=== PATIENT | female | born 1970 | race Caucasian/White ===

== ENCOUNTER 2023-04-06 11:59 | Outpatient (RCR) | payer OTHER, SELFPAY | END 2023-04-06 23:59 | disposition home or self-care (01) | LOC: RPT 11:59 | PROVIDERS: ATTENDING PHYSICIAN Psychiatry & Neurology Neurology; PRIMARYCARE PHYSICIAN Family Medicine | DX: M79.18 Myalgia, other site (principal); M62.838 Other muscle spasm; M62.81 Muscle weakness (generalized); Z73.6 Limitation of activities due to disability; R27.8 Other lack of coordination | CPT/HCPCS: 97110; 97162; 97530 ==

== ENCOUNTER 2023-05-08 10:59 | Outpatient (RCR) | payer OTHER, SELFPAY | END 2023-05-08 23:59 | disposition home or self-care (01) | LOC: RPT 10:59 | PROVIDERS: ATTENDING PHYSICIAN Psychiatry & Neurology Neurology; PRIMARYCARE PHYSICIAN Family Medicine | DX: M62.838 Other muscle spasm (principal); M62.81 Muscle weakness (generalized); R27.8 Other lack of coordination; Z73.6 Limitation of activities due to disability | CPT/HCPCS: 97110; 97530 ==

== ENCOUNTER 2023-06-08 10:02 | Outpatient (RCR) | payer OTHER, SELFPAY | END 2023-06-08 23:59 | disposition home or self-care (01) | LOC: RPT 10:02 | PROVIDERS: ATTENDING PHYSICIAN Psychiatry & Neurology Neurology; PRIMARYCARE PHYSICIAN Family Medicine | DX: M62.838 Other muscle spasm (principal); M62.81 Muscle weakness (generalized); R27.8 Other lack of coordination; Z73.6 Limitation of activities due to disability | CPT/HCPCS: 97110; 97530 ==

== ENCOUNTER 2023-07-06 10:00 | Outpatient (RCR) | payer OTHER, SELFPAY | END 2023-07-06 23:59 | disposition home or self-care (01) | LOC: RPT 10:00 | PROVIDERS: ATTENDING PHYSICIAN Psychiatry & Neurology Neurology; PRIMARYCARE PHYSICIAN Family Medicine | DX: M62.838 Other muscle spasm (principal); R27.8 Other lack of coordination; M62.81 Muscle weakness (generalized) | CPT/HCPCS: 97110; 97530 ==

== ENCOUNTER 2023-08-11 11:01 | Outpatient (RCR) | payer OTHER, SELFPAY | END 2023-08-11 23:59 | disposition home or self-care (01) | LOC: RPT 11:01 | PROVIDERS: ATTENDING PHYSICIAN Psychiatry & Neurology Neurology; PRIMARYCARE PHYSICIAN Family Medicine | DX: R27.8 Other lack of coordination (principal); M62.81 Muscle weakness (generalized); M79.18 Myalgia, other site; Z73.6 Limitation of activities due to disability | CPT/HCPCS: 97010; 97110; 97530 ==

== ENCOUNTER → 2023-08-11 12:38 | Outpatient (REF) | payer OTHER, SELFPAY | LOC: RAD 12:38 | PROVIDERS: ATTENDING PHYSICIAN Psychiatry & Neurology Neurology; FAMILY PHYSICIAN Family Medicine | DX: M25.512 Pain in left shoulder (principal) | CPT/HCPCS: 73030 ==

== ENCOUNTER → 2023-08-27 17:44 | Outpatient (REF) | payer OTHER, SELFPAY | LOC: PAVMRI 17:44 | PROVIDERS: ATTENDING PHYSICIAN Psychiatry & Neurology Neurology; FAMILY PHYSICIAN Family Medicine | DX: M54.12 Radiculopathy, cervical region (principal) | CPT/HCPCS: 72141 ==

== ENCOUNTER 2023-09-08 10:07 | Outpatient (RCR) | payer OTHER, SELFPAY | END 2023-09-08 23:59 | disposition home or self-care (01) | LOC: RPT 10:07 | PROVIDERS: ATTENDING PHYSICIAN Psychiatry & Neurology Neurology; PRIMARYCARE PHYSICIAN Family Medicine | DX: M62.838 Other muscle spasm (principal); M79.18 Myalgia, other site (principal); R27.8 Other lack of coordination; M62.81 Muscle weakness (generalized); Z73.6 Limitation of activities due to disability | CPT/HCPCS: 97110; 97140; 97530 ==

== ENCOUNTER 2023-10-13 08:32 | Outpatient (RCR) | payer OTHER, SELFPAY | END 2023-10-13 23:59 | disposition home or self-care (01) | LOC: RPT 08:32 | PROVIDERS: ATTENDING PHYSICIAN Psychiatry & Neurology Neurology; PRIMARYCARE PHYSICIAN Family Medicine | DX: M79.18 Myalgia, other site (principal); Z73.6 Limitation of activities due to disability; M62.838 Other muscle spasm; M62.81 Muscle weakness (generalized); R27.8 Other lack of coordination | CPT/HCPCS: 97014; 97110; 97112; 97530 ==

== ENCOUNTER 2023-10-30 06:45 | Outpatient (RCR) | payer OTHER, SELFPAY | END 2023-10-30 23:59 | disposition home or self-care (01) | LOC: RPT 06:45 | PROVIDERS: ATTENDING PHYSICIAN Psychiatry & Neurology Neurology; PRIMARYCARE PHYSICIAN Family Medicine | DX: M79.18 Myalgia, other site (principal); M62.838 Other muscle spasm (principal); M62.81 Muscle weakness (generalized); Z73.6 Limitation of activities due to disability; R27.8 Other lack of coordination | CPT/HCPCS: 97014; 97110; 97112; 97530 ==

== ENCOUNTER 2023-11-05 14:45 | Emergency (ER) | payer SELFPAY ==
[2023-11-05 14:50] VITALS: BP 154/103
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
== END 2023-11-05 17:50 | disposition home or self-care (01) ==
LOC: EMR 14:45
PROVIDERS: EMERGENCY PHYSICIAN Emergency Medicine; FAMILY PHYSICIAN Family Medicine
DX: S16.1XXA Strain of muscle, fascia and tendon at neck level, initial encounter (principal); V49.40XA Driver injured in collision with unspecified motor vehicles in traffic accident, initial encounter
CPT/HCPCS: 99284; 70450; 71046; 72125

== ENCOUNTER → 2023-11-17 10:12 | Outpatient (REF) | payer OTHER, SELFPAY | LOC: HWRAD 10:12 | PROVIDERS: ATTENDING PHYSICIAN Family Medicine | DX: R31.29 Other microscopic hematuria (principal) | CPT/HCPCS: 76770 ==

== ENCOUNTER 2023-11-24 10:59 | Outpatient (RCR) | payer OTHER, SELFPAY | END 2023-11-24 23:59 | disposition home or self-care (01) | LOC: RPT 10:59 | PROVIDERS: ATTENDING PHYSICIAN Psychiatry & Neurology Neurology; PRIMARYCARE PHYSICIAN Family Medicine | DX: M79.18 Myalgia, other site (principal); R27.8 Other lack of coordination; M62.838 Other muscle spasm; M62.81 Muscle weakness (generalized); Z73.6 Limitation of activities due to disability | CPT/HCPCS: 97110; 97140; 97530 ==

== ENCOUNTER 2023-12-09 10:42 | Outpatient (RCR) | payer OTHER, SELFPAY | END 2023-12-09 23:59 | disposition home or self-care (01) | LOC: RPT 10:42 | PROVIDERS: ATTENDING PHYSICIAN Physician Assistant; FAMILY PHYSICIAN Family Medicine | DX: S06.0X0D Concussion without loss of consciousness, subsequent encounter (principal); M62.838 Other muscle spasm; M54.9 Dorsalgia, unspecified; G89.29 Other chronic pain; Z73.6 Limitation of activities due to disability | CPT/HCPCS: 97163 ==

== ENCOUNTER 2023-12-17 12:58 | Outpatient (RCR) | payer OTHER, SELFPAY | END 2023-12-17 23:59 | disposition home or self-care (01) | LOC: RPT 12:58 | PROVIDERS: ATTENDING PHYSICIAN Psychiatry & Neurology Neurology; PRIMARYCARE PHYSICIAN Family Medicine | DX: M79.18 Myalgia, other site (principal); Z73.6 Limitation of activities due to disability; M62.838 Other muscle spasm; M62.81 Muscle weakness (generalized); R27.8 Other lack of coordination | CPT/HCPCS: 97110; 97530 ==

== ENCOUNTER 2024-01-12 06:04 | Outpatient (RCR) | payer OTHER, SELFPAY | END 2024-01-12 23:59 | disposition home or self-care (01) | LOC: RPT 06:04 | PROVIDERS: ATTENDING PHYSICIAN Physician Assistant; FAMILY PHYSICIAN Family Medicine | DX: S06.0X0D Concussion without loss of consciousness, subsequent encounter (principal); M62.838 Other muscle spasm; M54.9 Dorsalgia, unspecified; G89.29 Other chronic pain; Z73.6 Limitation of activities due to disability | CPT/HCPCS: 97010; 97110; 97112; 97140; 97530 ==

== ENCOUNTER 2024-01-18 11:01 | Outpatient (RCR) | payer OTHER, SELFPAY | END 2024-01-18 23:59 | disposition home or self-care (01) | LOC: RPT 11:01 | PROVIDERS: ATTENDING PHYSICIAN Psychiatry & Neurology Neurology; PRIMARYCARE PHYSICIAN Family Medicine | DX: M79.18 Myalgia, other site (principal); M62.838 Other muscle spasm; M62.81 Muscle weakness (generalized); Z73.6 Limitation of activities due to disability; R27.8 Other lack of coordination | CPT/HCPCS: 97014; 97110; 97112; 97140; 97530 ==

== ENCOUNTER → 2024-01-21 13:11 | Outpatient (REF) | payer OTHER, SELFPAY | LOC: HWRAD 13:11 | PROVIDERS: ATTENDING PHYSICIAN Nurse Practitioner; FAMILY PHYSICIAN Family Medicine | DX: N81.12 Cystocele, lateral (principal); N81.6 Rectocele | CPT/HCPCS: 76856 ==

== ENCOUNTER → 2024-02-05 07:51 | Outpatient (REF) | payer OTHER, SELFPAY | LOC: EMG 07:51 | PROVIDERS: ATTENDING PHYSICIAN Psychiatry & Neurology Neurology; FAMILY PHYSICIAN Family Medicine | DX: R29.898 Other symptoms and signs involving the musculoskeletal system (principal); R20.0 Anesthesia of skin | CPT/HCPCS: 95886; 95911 ==

== ENCOUNTER 2024-02-12 07:59 | Outpatient (RCR) | payer OTHER, SELFPAY | END 2024-02-12 23:59 | disposition home or self-care (01) | LOC: RPT 07:59 | PROVIDERS: ATTENDING PHYSICIAN Physician Assistant; FAMILY PHYSICIAN Family Medicine | DX: S06.0X0D Concussion without loss of consciousness, subsequent encounter (principal); M62.838 Other muscle spasm; M54.9 Dorsalgia, unspecified; G89.29 Other chronic pain; Z73.6 Limitation of activities due to disability | CPT/HCPCS: 97010; 97110; 97112; 97140; 97530 ==

== ENCOUNTER → 2024-02-25 07:55 | Outpatient (REF) | payer OTHER, SELFPAY | LOC: HWRAD 07:55 | PROVIDERS: ATTENDING PHYSICIAN Family Medicine | DX: E04.1 Nontoxic single thyroid nodule (principal) | CPT/HCPCS: 76536 ==

== ENCOUNTER 2024-03-01 13:03 | Outpatient (RCR) | payer OTHER, SELFPAY | END 2024-03-01 23:59 | disposition home or self-care (01) | LOC: RPT 13:03 | PROVIDERS: ATTENDING PHYSICIAN Psychiatry & Neurology Neurology; PRIMARYCARE PHYSICIAN Family Medicine | DX: M79.18 Myalgia, other site (principal); E27.8 Other specified disorders of adrenal gland; Z73.6 Limitation of activities due to disability; R27.8 Other lack of coordination; M62.838 Other muscle spasm; M62.81 Muscle weakness (generalized) | CPT/HCPCS: 97014; 97110; 97112; 97140; 97530 ==

== ENCOUNTER 2024-03-11 07:07 | Outpatient (RCR) | payer OTHER, SELFPAY | END 2024-03-11 23:59 | disposition home or self-care (01) | LOC: RPT 07:07 | PROVIDERS: ATTENDING PHYSICIAN Physician Assistant; FAMILY PHYSICIAN Family Medicine | DX: S06.0X0D Concussion without loss of consciousness, subsequent encounter (principal); M62.838 Other muscle spasm; M54.9 Dorsalgia, unspecified; G89.29 Other chronic pain; Z73.6 Limitation of activities due to disability | CPT/HCPCS: 97110; 97140; 97164 ==

== ENCOUNTER 2024-03-23 15:34 | Outpatient (RCR) | payer OTHER, SELFPAY | END 2024-04-06 09:17 | disposition home or self-care (01) | LOC: RPT 15:34 | PROVIDERS: ATTENDING PHYSICIAN Physician Assistant; FAMILY PHYSICIAN Family Medicine | DX: S06.0X0D Concussion without loss of consciousness, subsequent encounter (principal); M62.838 Other muscle spasm; M54.9 Dorsalgia, unspecified; G89.29 Other chronic pain; Z73.6 Limitation of activities due to disability | CPT/HCPCS: 97010; 97110; 97112; 97140 ==

== ENCOUNTER 2024-04-12 09:17 | Outpatient (RCR) | payer OTHER, SELFPAY | END 2024-04-12 23:59 | disposition home or self-care (01) | LOC: RPT 09:17 | PROVIDERS: ATTENDING PHYSICIAN Psychiatry & Neurology Neurology; PRIMARYCARE PHYSICIAN Family Medicine | DX: M79.18 Myalgia, other site (principal); E27.8 Other specified disorders of adrenal gland; Z73.6 Limitation of activities due to disability; R27.8 Other lack of coordination; M62.838 Other muscle spasm; M62.81 Muscle weakness (generalized) | CPT/HCPCS: 97014; 97110; 97112; 97140; 97530 ==

== ENCOUNTER 2024-04-15 11:17 | Outpatient (RCR) | payer OTHER, SELFPAY | END 2024-04-15 23:59 | disposition home or self-care (01) | LOC: RPT 11:17 | PROVIDERS: ATTENDING PHYSICIAN Psychiatry & Neurology Neurology; FAMILY PHYSICIAN Family Medicine | DX: M25.512 Pain in left shoulder (principal); M47.22 Other spondylosis with radiculopathy, cervical region; M25.312 Other instability, left shoulder; Z73.6 Limitation of activities due to disability; M62.81 Muscle weakness (generalized); R51.9 Headache, unspecified | CPT/HCPCS: 97110; 97163 ==

== ENCOUNTER 2024-05-03 06:32 | Outpatient (RCR) | payer OTHER, SELFPAY | END 2024-05-03 23:59 | disposition home or self-care (01) | LOC: RPT 06:32 | PROVIDERS: ATTENDING PHYSICIAN Psychiatry & Neurology Neurology; PRIMARYCARE PHYSICIAN Family Medicine | DX: M79.18 Myalgia, other site (principal); M25.512 Pain in left shoulder (principal); E27.8 Other specified disorders of adrenal gland; M47.22 Other spondylosis with radiculopathy, cervical region; Z73.6 Limitation of activities due to disability; M25.312 Other instability, left shoulder; R27.8 Other lack of coordination; M62.838 Other muscle spasm; M62.81 Muscle weakness (generalized) | CPT/HCPCS: 97014; 97110; 97112; 97140; 97530 ==

== ENCOUNTER 2024-05-11 13:08 | Outpatient (RCR) | payer OTHER, SELFPAY | END 2024-05-11 23:59 | disposition home or self-care (01) | LOC: RPT 13:08 | PROVIDERS: ATTENDING PHYSICIAN Psychiatry & Neurology Neurology; FAMILY PHYSICIAN Family Medicine | DX: M25.512 Pain in left shoulder (principal); M47.22 Other spondylosis with radiculopathy, cervical region; M25.312 Other instability, left shoulder; Z73.6 Limitation of activities due to disability; M62.81 Muscle weakness (generalized); R51.9 Headache, unspecified | CPT/HCPCS: 97010; 97014; 97110; 97112; 97140 ==

== ENCOUNTER 2024-05-12 16:56 | Emergency (ER) | payer SELFPAY ==
[2024-05-12 17:26] VITALS: BP 153/107
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
[2024-05-12] MEDS: TYLENOL 650 MG PO (21:37)
[2024-05-12] MEDS: ZOFRAN ODT (ORALLY DISINTEGRATING) 4 MG PO (21:37)
[2024-05-12 22:25] VITALS: BP 146/92
== END 2024-05-12 22:54 | disposition home or self-care (01) ==
LOC: EMR 16:56
PROVIDERS: EMERGENCY PHYSICIAN Emergency Medicine; FAMILY PHYSICIAN Family Medicine
DX: S06.0XAA Concussion with loss of consciousness status unknown, initial encounter (principal); S16.1XXA Strain of muscle, fascia and tendon at neck level, initial encounter; V43.62XA Car passenger injured in collision with other type car in traffic accident, initial encounter; Y92.410 Unspecified street and highway as the place of occurrence of the external cause
CPT/HCPCS: 99284; 70450; 72125

== ENCOUNTER → 2024-06-02 13:41 | Outpatient (REF) | payer OTHER, SELFPAY | LOC: WDC 13:41 | PROVIDERS: ATTENDING PHYSICIAN Physician Assistant | DX: Z12.31 Encounter for screening mammogram for malignant neoplasm of breast (principal) | CPT/HCPCS: 77063; 77067 ==

== ENCOUNTER 2024-06-10 10:10 | Outpatient (RCR) | payer OTHER, SELFPAY | END 2024-06-10 23:59 | disposition home or self-care (01) | LOC: RPT 10:10 | PROVIDERS: ATTENDING PHYSICIAN Physician Assistant | DX: M54.50 Low back pain, unspecified (principal); M54.2 Cervicalgia; R26.81 Unsteadiness on feet; G44.329 Chronic post-traumatic headache, not intractable; Z73.6 Limitation of activities due to disability; M62.81 Muscle weakness (generalized); S06.0X0D Concussion without loss of consciousness, subsequent encounter; S16.1XXD Strain of muscle, fascia and tendon at neck level, subsequent encounter; R20.2 Paresthesia of skin; M25.512 Pain in left shoulder; M25.511 Pain in right shoulder; V49.60XD Unspecified car occupant injured in collision with unspecified motor vehicles in traffic accident, subsequent encounter | CPT/HCPCS: 97010; 97014; 97110; 97140; 97163 ==

== ENCOUNTER 2024-07-12 12:32 | Outpatient (RCR) | payer OTHER, SELFPAY | END 2024-07-12 23:59 | disposition home or self-care (01) | LOC: RPT 12:32 | PROVIDERS: ATTENDING PHYSICIAN Psychiatry & Neurology Neurology; PRIMARYCARE PHYSICIAN Family Medicine | DX: M25.512 Pain in left shoulder (principal); M79.18 Myalgia, other site; M47.22 Other spondylosis with radiculopathy, cervical region; M25.312 Other instability, left shoulder; Z73.6 Limitation of activities due to disability; E27.8 Other specified disorders of adrenal gland; R27.8 Other lack of coordination; M62.838 Other muscle spasm; M62.81 Muscle weakness (generalized) | CPT/HCPCS: 97110; 97112; 97140; 97530 ==

== ENCOUNTER 2024-07-13 09:08 | Outpatient (RCR) | payer OTHER, SELFPAY | END 2024-07-13 23:59 | disposition home or self-care (01) | LOC: RPT 09:08 | PROVIDERS: ATTENDING PHYSICIAN Physician Assistant | DX: M54.50 Low back pain, unspecified (principal); M54.2 Cervicalgia; R26.81 Unsteadiness on feet; G44.329 Chronic post-traumatic headache, not intractable; Z73.6 Limitation of activities due to disability; M62.81 Muscle weakness (generalized); S06.0X0D Concussion without loss of consciousness, subsequent encounter; S16.1XXD Strain of muscle, fascia and tendon at neck level, subsequent encounter; R20.2 Paresthesia of skin; M25.512 Pain in left shoulder; M25.511 Pain in right shoulder; V49.60XD Unspecified car occupant injured in collision with unspecified motor vehicles in traffic accident, subsequent encounter | CPT/HCPCS: 97010; 97014; 97110; 97112; 97140 ==

== ENCOUNTER 2024-08-05 10:22 | Outpatient (RCR) | payer OTHER, SELFPAY | END 2024-08-05 23:59 | disposition home or self-care (01) | LOC: RPT 10:22 | PROVIDERS: ATTENDING PHYSICIAN Psychiatry & Neurology Neurology; PRIMARYCARE PHYSICIAN Family Medicine | DX: M79.18 Myalgia, other site (principal); M47.22 Other spondylosis with radiculopathy, cervical region; M25.512 Pain in left shoulder; M25.312 Other instability, left shoulder; Z73.6 Limitation of activities due to disability; E27.8 Other specified disorders of adrenal gland; R27.8 Other lack of coordination; M62.838 Other muscle spasm; M62.81 Muscle weakness (generalized) | CPT/HCPCS: 97014; 97110; 97112; 97140; 97530 ==

== ENCOUNTER 2024-08-12 10:22 | Outpatient (RCR) | payer OTHER, SELFPAY | END 2024-08-12 23:59 | disposition home or self-care (01) | LOC: RPT 10:22 | PROVIDERS: ATTENDING PHYSICIAN Physician Assistant | DX: M54.50 Low back pain, unspecified (principal); M54.2 Cervicalgia; R26.81 Unsteadiness on feet; G44.329 Chronic post-traumatic headache, not intractable; Z73.6 Limitation of activities due to disability; M62.81 Muscle weakness (generalized); S06.0X0D Concussion without loss of consciousness, subsequent encounter; S16.1XXD Strain of muscle, fascia and tendon at neck level, subsequent encounter; R20.2 Paresthesia of skin; M25.512 Pain in left shoulder; M25.511 Pain in right shoulder; V49.60XD Unspecified car occupant injured in collision with unspecified motor vehicles in traffic accident, subsequent encounter | CPT/HCPCS: 97010; 97110; 97112; 97140 ==

== ENCOUNTER 2024-08-30 08:00 | Outpatient (RCR) | payer OTHER, SELFPAY | END 2024-08-30 23:59 | disposition home or self-care (01) | LOC: RPT 08:00 | PROVIDERS: ATTENDING PHYSICIAN Psychiatry & Neurology Neurology; PRIMARYCARE PHYSICIAN Family Medicine | DX: M25.59 Pain in other specified joint (principal); M79.18 Myalgia, other site (principal); M25.512 Pain in left shoulder; M47.22 Other spondylosis with radiculopathy, cervical region; M25.312 Other instability, left shoulder; Z73.6 Limitation of activities due to disability; E27.8 Other specified disorders of adrenal gland; R27.8 Other lack of coordination; M62.838 Other muscle spasm; M62.81 Muscle weakness (generalized) | CPT/HCPCS: 97014; 97110; 97112; 97140; 97530 ==

== ENCOUNTER 2024-09-07 08:10 | Outpatient (RCR) | payer OTHER, SELFPAY | END 2024-09-07 23:59 | disposition home or self-care (01) | LOC: RPT 08:10 | PROVIDERS: ATTENDING PHYSICIAN Physician Assistant | DX: M54.50 Low back pain, unspecified (principal); M25.50 Pain in unspecified joint (principal); M54.2 Cervicalgia; R26.81 Unsteadiness on feet; G44.329 Chronic post-traumatic headache, not intractable; Z73.6 Limitation of activities due to disability; M62.81 Muscle weakness (generalized); S06.0X0D Concussion without loss of consciousness, subsequent encounter; S16.1XXD Strain of muscle, fascia and tendon at neck level, subsequent encounter; R20.2 Paresthesia of skin; M25.512 Pain in left shoulder; M25.511 Pain in right shoulder; V49.60XD Unspecified car occupant injured in collision with unspecified motor vehicles in traffic accident, subsequent encounter | CPT/HCPCS: 97010; 97110; 97112; 97140 ==

== ENCOUNTER 2024-09-23 09:14 | Outpatient (RCR) | payer OTHER, SELFPAY | END 2024-09-27 23:59 | disposition home or self-care (01) | LOC: RPT 09:14 | PROVIDERS: ATTENDING PHYSICIAN Physician Assistant | DX: M25.50 Pain in unspecified joint (principal); M54.2 Cervicalgia; R26.81 Unsteadiness on feet; G44.329 Chronic post-traumatic headache, not intractable; Z73.6 Limitation of activities due to disability; M62.81 Muscle weakness (generalized); S06.0X0D Concussion without loss of consciousness, subsequent encounter; S16.1XXD Strain of muscle, fascia and tendon at neck level, subsequent encounter; R20.2 Paresthesia of skin; M25.512 Pain in left shoulder; M25.511 Pain in right shoulder; V49.60XD Unspecified car occupant injured in collision with unspecified motor vehicles in traffic accident, subsequent encounter; M54.50 Low back pain, unspecified | CPT/HCPCS: 97010; 97110; 97112; 97140 ==

== ENCOUNTER 2024-10-12 13:08 | Outpatient (RCR) | payer OTHER, SELFPAY | END 2024-10-12 23:59 | disposition home or self-care (01) | LOC: RPT 13:08 | PROVIDERS: ATTENDING PHYSICIAN Psychiatry & Neurology Neurology; PRIMARYCARE PHYSICIAN Family Medicine | DX: M25.59 Pain in other specified joint (principal); Z73.6 Limitation of activities due to disability; M25.512 Pain in left shoulder; M47.22 Other spondylosis with radiculopathy, cervical region; M25.312 Other instability, left shoulder; E27.8 Other specified disorders of adrenal gland; R27.8 Other lack of coordination; M62.838 Other muscle spasm; M62.81 Muscle weakness (generalized); M79.18 Myalgia, other site | CPT/HCPCS: 97014; 97110; 97112; 97530 ==

== ENCOUNTER 2024-11-09 06:48 | Outpatient (RCR) | payer OTHER, SELFPAY | END 2024-11-09 23:59 | disposition home or self-care (01) | LOC: RPT 06:48 | PROVIDERS: ATTENDING PHYSICIAN Physician Assistant | DX: M25.50 Pain in unspecified joint (principal); M54.2 Cervicalgia; R26.81 Unsteadiness on feet; G44.329 Chronic post-traumatic headache, not intractable; Z73.6 Limitation of activities due to disability; M62.81 Muscle weakness (generalized); S06.0X0D Concussion without loss of consciousness, subsequent encounter; S16.1XXD Strain of muscle, fascia and tendon at neck level, subsequent encounter; R20.2 Paresthesia of skin; M25.512 Pain in left shoulder; M25.511 Pain in right shoulder; V49.60XD Unspecified car occupant injured in collision with unspecified motor vehicles in traffic accident, subsequent encounter; M54.50 Low back pain, unspecified | CPT/HCPCS: 97010; 97110; 97112; 97140; 97530 ==

== ENCOUNTER 2024-11-11 06:36 | Outpatient (RCR) | payer OTHER, SELFPAY | END 2024-11-11 23:59 | disposition home or self-care (01) | LOC: RPT 06:36 | PROVIDERS: ATTENDING PHYSICIAN Psychiatry & Neurology Neurology; PRIMARYCARE PHYSICIAN Family Medicine | DX: M79.18 Myalgia, other site (principal); R27.8 Other lack of coordination; Z73.6 Limitation of activities due to disability; M25.59 Pain in other specified joint; M25.512 Pain in left shoulder; M47.22 Other spondylosis with radiculopathy, cervical region; M25.312 Other instability, left shoulder; E27.8 Other specified disorders of adrenal gland; M62.838 Other muscle spasm; M62.81 Muscle weakness (generalized) | CPT/HCPCS: 97014; 97110; 97112; 97530 ==

== ENCOUNTER 2024-12-05 12:34 | Outpatient (RCR) | payer OTHER, SELFPAY | END 2024-12-06 23:59 | disposition home or self-care (01) | LOC: RPT 12:34 | PROVIDERS: ATTENDING PHYSICIAN Psychiatry & Neurology Neurology; PRIMARYCARE PHYSICIAN Family Medicine | DX: M54.2 Cervicalgia (principal); R26.81 Unsteadiness on feet; M54.50 Low back pain, unspecified; G44.329 Chronic post-traumatic headache, not intractable; M25.59 Pain in other specified joint; M25.512 Pain in left shoulder; Z73.6 Limitation of activities due to disability; M79.18 Myalgia, other site; M47.22 Other spondylosis with radiculopathy, cervical region; M25.312 Other instability, left shoulder; E27.8 Other specified disorders of adrenal gland; R39.15 Urgency of urination; M62.838 Other muscle spasm; R27.8 Other lack of coordination; M62.81 Muscle weakness (generalized); N39.41 Urge incontinence; V89.2XXA Person injured in unspecified motor-vehicle accident, traffic, initial encounter | CPT/HCPCS: 97014; 97110; 97112 ==

== ENCOUNTER 2024-12-06 12:56 | Outpatient (RCR) | payer OTHER, SELFPAY | END 2024-12-06 23:59 | disposition home or self-care (01) | LOC: RPT 12:56 | PROVIDERS: ATTENDING PHYSICIAN Physician Assistant | DX: M25.50 Pain in unspecified joint (principal); M54.2 Cervicalgia; R26.81 Unsteadiness on feet; M62.81 Muscle weakness (generalized); G44.329 Chronic post-traumatic headache, not intractable; Z73.6 Limitation of activities due to disability; S06.0X0D Concussion without loss of consciousness, subsequent encounter; S16.1XXD Strain of muscle, fascia and tendon at neck level, subsequent encounter; R20.2 Paresthesia of skin; M25.512 Pain in left shoulder; M25.511 Pain in right shoulder; V49.60XD Unspecified car occupant injured in collision with unspecified motor vehicles in traffic accident, subsequent encounter; M54.50 Low back pain, unspecified | CPT/HCPCS: 97010; 97110; 97112; 97140 ==

== ENCOUNTER 2025-01-03 06:11 | Outpatient (RCR) | payer OTHER, SELFPAY | END 2025-01-03 23:59 | disposition home or self-care (01) | LOC: RPT 06:11 | PROVIDERS: ATTENDING PHYSICIAN Psychiatry & Neurology Neurology; PRIMARYCARE PHYSICIAN Family Medicine | DX: M54.2 Cervicalgia (principal); R26.81 Unsteadiness on feet; M54.50 Low back pain, unspecified; G44.329 Chronic post-traumatic headache, not intractable; Z73.6 Limitation of activities due to disability; M79.18 Myalgia, other site; M62.838 Other muscle spasm; R39.15 Urgency of urination; R27.8 Other lack of coordination; N39.41 Urge incontinence; V89.2XXA Person injured in unspecified motor-vehicle accident, traffic, initial encounter; M25.59 Pain in other specified joint; M25.512 Pain in left shoulder; M47.22 Other spondylosis with radiculopathy, cervical region; M25.312 Other instability, left shoulder; E27.8 Other specified disorders of adrenal gland; M62.81 Muscle weakness (generalized); V49.9XXD Car occupant (driver) (passenger) injured in unspecified traffic accident, subsequent encounter | CPT/HCPCS: 97014; 97110; 97112; 97140; 97530 ==

== ENCOUNTER 2025-01-06 07:50 | Outpatient (RCR) | payer OTHER, SELFPAY | END 2025-01-06 12:56 | disposition home or self-care (01) | LOC: RPT 07:50 | PROVIDERS: ATTENDING PHYSICIAN Physician Assistant | DX: G44.329 Chronic post-traumatic headache, not intractable (principal); M54.2 Cervicalgia (principal); R26.81 Unsteadiness on feet; Z73.6 Limitation of activities due to disability; M62.81 Muscle weakness (generalized); S06.0X0D Concussion without loss of consciousness, subsequent encounter; S16.1XXD Strain of muscle, fascia and tendon at neck level, subsequent encounter; R20.2 Paresthesia of skin; M25.512 Pain in left shoulder; M25.511 Pain in right shoulder; M54.50 Low back pain, unspecified; V49.60XD Unspecified car occupant injured in collision with unspecified motor vehicles in traffic accident, subsequent encounter; M25.50 Pain in unspecified joint | CPT/HCPCS: 97110; 97112; 97140; 97530 ==

== ENCOUNTER 2025-01-11 13:18 | Outpatient (RCR) | payer OTHER, SELFPAY | END 2025-01-11 23:59 | disposition home or self-care (01) | LOC: RPT 13:18 | PROVIDERS: ATTENDING PHYSICIAN Physician Assistant; FAMILY PHYSICIAN Family Medicine | DX: G44.329 Chronic post-traumatic headache, not intractable (principal); Z73.6 Limitation of activities due to disability; M54.2 Cervicalgia; F07.81 Postconcussional syndrome; R42 Dizziness and giddiness; M62.81 Muscle weakness (generalized); V49.9XXD Car occupant (driver) (passenger) injured in unspecified traffic accident, subsequent encounter | CPT/HCPCS: 97112; 97163; 97530 ==

== ENCOUNTER 2025-01-17 07:23 | Outpatient (RCR) | payer OTHER, SELFPAY | END 2025-01-17 23:59 | disposition home or self-care (01) | LOC: RPT 07:23 | PROVIDERS: ATTENDING PHYSICIAN Psychiatry & Neurology Neurology; PRIMARYCARE PHYSICIAN Family Medicine | DX: M62.838 Other muscle spasm (principal); M54.2 Cervicalgia (principal); R26.81 Unsteadiness on feet; M54.50 Low back pain, unspecified; R27.8 Other lack of coordination; G44.329 Chronic post-traumatic headache, not intractable; N39.41 Urge incontinence; Z73.6 Limitation of activities due to disability; M79.18 Myalgia, other site; R39.15 Urgency of urination; V89.2XXA Person injured in unspecified motor-vehicle accident, traffic, initial encounter; M25.59 Pain in other specified joint; M25.512 Pain in left shoulder; M47.22 Other spondylosis with radiculopathy, cervical region; M25.312 Other instability, left shoulder; E27.8 Other specified disorders of adrenal gland; M62.81 Muscle weakness (generalized); V49.9XXD Car occupant (driver) (passenger) injured in unspecified traffic accident, subsequent encounter | CPT/HCPCS: 97014; 97110; 97112; 97530 ==

== ENCOUNTER 2025-02-07 11:47 | Outpatient (RCR) | payer OTHER, SELFPAY | END 2025-02-07 23:59 | disposition home or self-care (01) | LOC: RPT 11:47 | PROVIDERS: ATTENDING PHYSICIAN Physician Assistant; FAMILY PHYSICIAN Family Medicine | DX: G44.329 Chronic post-traumatic headache, not intractable (principal); Z73.6 Limitation of activities due to disability; M54.2 Cervicalgia; F07.81 Postconcussional syndrome; R42 Dizziness and giddiness; M62.81 Muscle weakness (generalized); V49.9XXD Car occupant (driver) (passenger) injured in unspecified traffic accident, subsequent encounter | CPT/HCPCS: 97112; 97530 ==

== ENCOUNTER 2025-02-17 07:31 | Outpatient (RCR) | payer OTHER, SELFPAY | END 2025-02-17 12:13 | disposition home or self-care (01) | LOC: RPT 07:31 | PROVIDERS: ATTENDING PHYSICIAN Psychiatry & Neurology Neurology; PRIMARYCARE PHYSICIAN Family Medicine | DX: M54.2 Cervicalgia (principal); M54.50 Low back pain, unspecified; G44.329 Chronic post-traumatic headache, not intractable; Z73.6 Limitation of activities due to disability; M79.18 Myalgia, other site; R27.8 Other lack of coordination; N39.41 Urge incontinence; V89.2XXA Person injured in unspecified motor-vehicle accident, traffic, initial encounter; M25.59 Pain in other specified joint; M25.512 Pain in left shoulder; M47.22 Other spondylosis with radiculopathy, cervical region; M25.312 Other instability, left shoulder; V49.9XXD Car occupant (driver) (passenger) injured in unspecified traffic accident, subsequent encounter; E27.8 Other specified disorders of adrenal gland; R26.81 Unsteadiness on feet; M62.838 Other muscle spasm; R39.15 Urgency of urination; M62.81 Muscle weakness (generalized) | CPT/HCPCS: 97110; 97112; 97530 ==

== ENCOUNTER 2025-03-10 07:33 | Outpatient (RCR) | payer OTHER, SELFPAY | END 2025-03-10 23:59 | disposition home or self-care (01) | LOC: RPT 07:33 | PROVIDERS: ATTENDING PHYSICIAN Physician Assistant; FAMILY PHYSICIAN Family Medicine | DX: G44.329 Chronic post-traumatic headache, not intractable (principal); Z73.6 Limitation of activities due to disability; M54.2 Cervicalgia; F07.81 Postconcussional syndrome; R42 Dizziness and giddiness; M62.81 Muscle weakness (generalized); V49.9XXD Car occupant (driver) (passenger) injured in unspecified traffic accident, subsequent encounter | CPT/HCPCS: 97110; 97112; 97530 ==